=== PATIENT | female | born 1970 | race Caucasian/White ===

== ENCOUNTER 2020-09-19 06:46 | Outpatient (REF) | payer MEDICAID, SELFPAY | END 2020-09-19 06:47 | disposition home or self-care (01) | LOC: HO.LAB 06:46 | PROVIDERS: Visit Provider Internal Medicine | DX: Z20.828 Contact with and (suspected) exposure to other viral communicable diseases (principal) | CPT/HCPCS: C9803; U0003 ==

== ENCOUNTER 2021-05-28 10:19 | Outpatient (REF) | payer MEDICAID, SELFPAY ==
[2021-05-28 10:54] LABS: MANUAL DIFF FLAG NO
[2021-05-28 11:07] LABS: Basophils Absolute Auto 0.1 X10*3/uL (0.0-0.2); Basophils Percent Auto 0.9 % (0-2); Eosinophils Absolute Auto 0.3 X10*3/uL (0.0-0.4); Eosinophils Percent Auto 3.9 % (0-4); Hematocrit 45.3 % (37-47); Hemoglobin 15.1 g/dl (12.0-16.0); Imm Gran Abs Auto 0.02 X10*3/uL (0.00-0.03); Imm Gran Pct Auto 0.3 % (0.0-0.4); Lymphocytes Absolute Auto 1.9 X10*3/uL (1.2-4.9); Lymphocytes Percent Auto 24.1 % (20-40); Mean Corpuscular HGB Conc 33.3 g/dl (31.0-35.0); Mean Corpuscular Hemoglobin 30.8 pg (27.0-33.0); Mean Corpuscular Volume 92.4 fL (80-98); Mean Platelet Volume 10.1 fL (9.4-12.3); Monocytes Absolute Auto 0.5 X10*3/uL (0.1-1.2); Monocytes Percent Auto 5.7 % (2-11); Neutrophils Absolute Auto 5.1 X10*3/uL (2.0-8.3); Neutrophils Percent Auto 65.1 % (45-73); Platelet Count 266 X10*3/uL (160-400); Red Cell Distribution Width 12.6 % (11.0-16.0); White Blood Count 7.9 X10*3/uL (4.8-10.8)
[2021-05-28 11:11] LABS: Estimated Average Glucose 103 mg/dL; Hemoglobin A1c % 5.2 %
[2021-05-28 11:21] LABS: Alanine Aminotransferase 20 U/L (0-31); Albumin Level 4.4 g/dL (3.5-5.0); Alkaline Phosphatase 59 U/L (39-117); Anion Gap 13 (12-20); Aspartate Amino Transferase 19 U/L (5-31); Bilirubin Total 0.4 mg/dL (0.0-1.0); Blood Urea Nitrogen 14 mg/dL (9-16); Calcium 9.2 mg/dL (8.4-10.2); Carbon Dioxide 27 mmol/L (22-29); Chloride 104 mmol/L (96-108); Cholesterol 174 mg/dL; Estimated Glomerular Filt Rate > 60; Glucose Random 114 mg/dL (60-115); HDL Cholesterol 77 mg/dL; LDL Cholesterol Calculated 68 mg/dl; Potassium 4.5 mmol/L (3.3-5.1); Sodium 139 mmol/L (135-145); Total Protein 6.8 g/dL (6.5-8.0); Triglycerides 145 mg/dL
[2021-05-28 11:34] LABS: ~HepC Num1 0.09 S/CO (0.00-0.79); ~Hepatitis C Antibody Nonreactive (Nonreactive)
[2021-05-28 11:35] LABS: HBc Num1 0.07 S/CO (0.00-0.79); HIV AB/AG Nonreactive (Nonreactive); HIV Num 1 0.09 S/CO (0.00-0.99); Hepatitis B Core Antibody Nonreactive (Nonreactive); Hepatitis B Surface Antigen Negative (Negative)
[2021-05-28 11:36] LABS: HBS Num1 0.32 mIU/mL (0-7.99); ~Hepatitis B Surface Antibody NONREACTIVE (Nonreactive)
[2021-05-28 11:43] LABS: TSH reflex Free T4 1.16 uIU/mL (0.32-4.0); Vitamin D 25-OH Total 32.4 ng/mL (>30)
[2021-05-28 12:09] LABS: Creatinine Urine 166.44 mg/dL; Microalbum/Creatinine Ratio Ur 5.4 ug/mg cr
[2021-05-28 12:36] LABS: Syphilis Screen Nonreactive (Nonreactive)
== END 2021-05-28 10:20 | disposition home or self-care (01) ==
LOC: HO.LAB 10:19
PROVIDERS: PCP Nurse Practitioner Primary Care; Visit Provider Nurse Practitioner Primary Care
DX: I10 Essential (primary) hypertension (principal); F17.200 Nicotine dependence, unspecified, uncomplicated; Z11.3 Encounter for screening for infections with a predominantly sexual mode of transmission; Z13.1 Encounter for screening for diabetes mellitus; Z13.220 Encounter for screening for lipoid disorders
CPT/HCPCS: 36415; 80053; 80061; 82043; 82306; 83036; 84443; 85025; 86704; 86706; 86780; 86803; 87340; 87389

== ENCOUNTER 2023-03-17 08:37 | Emergency (ER) | payer MEDICAID, SELFPAY ==
--- NOTE | ~2023-03-17 | XR_ITS ---
EXAMINATION: XR CHEST CLINICAL INFORMATION: SOB and cough COMPARISON: None available. TECHNIQUE: 2 views of the chest were obtained. FINDINGS: No significant abnormality is noted involving the heart, lungs, mediastinum, bony thorax or soft tissues. XR/XR chest 2V IMPRESSION: Unremarkable chest examination.
[2023-03-17 08:57] VITALS: BP 142/97; PULSE 104; RESP 19; TEMP 37; O2SAT 93; BMI 29.9
--- NOTE | 2023-03-17 09:02 | ED.SOB ---
HPI - SOB/Dyspnea General Chief Complaint: Upper Respiratory Symptoms Stated Complaint: Trouble breathing/Cough Time Seen by Provider: 03/17/23 09:00 Source: patient Mode of arrival: ambulatory Limitations: no limitations History of Present Illness HPI Narrative: 52 yo female, active smoker with no medical problems presents to the ER for evaluation of painful cough, SOB, and nasal congestion for the last 3 days. She states her son was recently sick with an upper respiratory tract infection, was prescribed a decongestant by his doctor and got better within a few days. Patient reports she has been taking decongestants all weekend and has had no movements. She states she has a painful cough, pain in her chest when she coughs and takes a deep breath. She has nasal congestion but is unable to bring up any chest congestion or phlegm. She denies any fever or chills. No nausea, vomiting, or abdominal pain but she did have a couple episodes of loose stools which has gotten better. MD elicited complaint: shortness of breath and cough Onset (ago): day(s) (3) Context: recent illness Timing: progressively worsening Severity: moderate Exacerbating factors: coughing Relieving factors: nothing Associated symptoms: chest pain, pain with inspiration, cough and chest congestion Treatment prior to arrival: none Related Data Home oxygen amount: none Previous Rx's Medication Instructions Recorded benzonatate 100 mg capsule 100 mg PO TID PRN cough #20 caps 03/17/23 prednisone 20 mg tablet 40 mg PO DAILY #10 tabs 03/17/23 Allergies Allergy/AdvReac Type Severity Reaction Status Date / Time No Known Allergies Allergy Verified 03/17/23 08:57 Review of Systems Review of Systems: Yes all other systems are reviewed and are negative [facility] Social History Social History Alcohol intake: never Smoked in Last 30 Days: Yes Advance Directives: No Advance Directives Information Provided: No Physical Exam Vital Signs: Vital Signs: Last Vital Signs Temp 98.5 F 03/17/23 09:03 Pulse 106 H 03/17/23 09:03 Resp 18 03/17/23 09:03 BP 138/92 H 03/17/23 09:03 Pulse Ox 95 03/17/23 09:03 O2 Del Method Room Air 03/17/23 09:03 BMI result Body Mass Index 29.9 Appearance: Alert. Oriented X3. No acute distress. Head: normocephalic, atraumatic. Eyes: Pupils equal, round and reactive to light. ENT: Pharynx normal. No tonsillar swelling or exudate. Neck: Normal inspection. Neck supple. CVS: Tachycardic, regular rhythm, heart rate 107. Pulses normal. Respiratory: No respiratory distress. Breath sounds normal. Congested cough noted. Abdomen: Soft and nontender. +BS x4 Skin: Skin warm and dry. Normal skin color. Normal skin turgor. No rashes. Extremities: No lower extremity edema. No joint swelling. No calf tenderness. Neuro/psych: Oriented X 3. No motor deficit. No sensory deficit. CN II-XII intact. Normal speech and cognition. Medications Administered Discontinued Medications Generic Name Dose Route Start Last Admin Trade Name Dejuanq PRN Reason Stop Dose Admin Acetaminophen 975 mg 03/17/23 09:06 03/17/23 09:13 Acetaminophen 325 Mg Tablet PO 03/17/23 09:07 975 mg ONCE ONE Administration Guaifenesin 1,200 mg 03/17/23 09:06 03/17/23 09:13 Guaifenesin La 600 Mg Tab.Er.12h PO 03/17/23 09:07 1,200 mg ONCE ONE Administration Medical Decision Making Medical Decision Making [facility] Narrative: 52-year-old female, active smoker with no other medical problems presents to the ER for evaluation of chest congestion, shortness of breath, nasal congestion for the last 3 days. She did recently have exposure to her son who was also ill. She is slightly tachycardic on arrival, SpO2 95%, speaking in full complete sentences with no respiratory distress. Her lungs are clear on examination. The etiology of her shortness of breath and chest discomfort is due to a respiratory infection. Her chest x-ray is negative for pneumonia. Patient tested positive for COVID today. She is vaccinated. Low clinical suspicion for pulmonary embolism. She is saturating well on room air. We discussed diagnosis, treatment, supportive care and return precautions. She is stable for discharge home. Patient agrees with plan. Differential Diagnosis Differential Diagnoses: The differential diagnosis associated with the presentation includes Pneumonia, viral syndrome, COVID, flu, RSV, bronchitis, less likely ACS or PE Lab Data [facility] Lab Attestation statement: I reviewed the patient's lab results. Mild thrombocytopenia, otherwise unremarkable. 03/17/23 09:21 03/17/23 09:21 Labs: Lab Results 03/17/23 03/17/23 03/17/23 Range/Units 09:21 09:21 09:21 WBC 9.8 (4.8-10.8) X10*3/uL RBC 4.79 (4.20-5.50) X10*6/uL Hgb 14.1 (12.0-16.0) g/dl Hct 43.3 (37.0-47.0) % MCV 90.4 (80.0-98.0) fL MCH 29.4 (27.0-33.0) pg MCHC 32.6 (31.0-35.0) g/dl RDW 12.7 (11.0-16.0) % Plt Count 157 L (160-400) X10*3/uL MPV 9.8 (9.4-12.3) fL Immature Gran % (Auto) 0.2 (0.0-0.4) % Neut % (Auto) 80.0 H (45-73) % Lymph % (Auto) 12.0 L (20-40) % Mcdonald % (Auto) 6.7 (2-11) % Eos % (Auto) 0.9 (0-4) % Baso % (Auto) 0.2 (0-2) % Lymph # (Auto) 1.2 (1.2-4.9) X10*3/uL Mcdonald # (Auto) 0.7 (0.1-1.2) X10*3/uL Eos # (Auto) 0.1 (0.0-0.4) X10*3/uL Baso # (Auto) 0.0 (0.0-0.2) X10*3/uL Abs Immat Gran (auto) 0.02 (0.00-0.03) X10*3/uL Absolute Neuts (auto) 7.8 (2.0-8.3) x10*3/uL Absolute Nucleated RBC 0.000 (0.0-0.012) X10*3/uL Nucleated RBC % (auto) 0.0 (0.0-0.2) /100WBC Sodium 138 (135-145) mmol/L Potassium 4.0 (3.3-5.1) mmol/L Chloride 104 (96-108) mmol/L Carbon Dioxide 25 (22-29) mmol/L Anion Gap 13 (12-20) BUN 9 (9-16) mg/dL Creatinine 0.71 (0.5-1.4) mg/dL Estim Creat Clear Calc 124.1 Estimated GFR > 60 Random Glucose 106 (60-115) mg/dL Calcium 9.2 (8.4-10.2) mg/dL Magnesium 2.1 (1.6-2.6) mg/dL Total Bilirubin 0.4 (0.0-1.0) mg/dL Direct Bilirubin 0.1 (0.0-0.5) mg/dL AST 27 (5-31) U/L ALT 24 (0-31) U/L Alkaline Phosphatase 84 (39-117) U/L Total Protein 7.0 (6.5-8.0) g/dL Albumin 4.3 (3.5-5.0) g/dL COVID-19 (SHERIF) Positive A (Negative) COVID-19 Clin Com See Note Independent Interpretation I performed an independent interpretation of an: EKG and Plain X-Ray Interpretation: Chest x-ray is clear, no evidence of COVID pneumonia. EKG was sinus tachycardia, heart rate 104 beats per minute, isolated T-wave inversion in V1 only, no ST segment elevations or depressions. Normal TX interval and normal QTC. Radiology Impression Discussion of test interpretation with radiology: I have reviewed the radiologist's reading. Radiologist Impression: ?XR/XR chest 2V IMPRESSION: Unremarkable chest examination. External Record Review External record reviewed: Prior outpatient labs Tests considered The following testing was considered but not selected: CT angiogram of the chest considered, however low clinical suspicion for pulmonary embolism Prescription Management I considered prescription management with: Antibiotic Chronic Conditions Patient?s care impacted by: Other (Active smoker) Critical Care Time Critical Care Time Critical Care Time: No Discharge Plan Discharge Clinical Impression: COVID-19 Patient Disposition: Home, Self-Care Instructions: Covid-19 Viral Syndrome and Novel Coronavirus (ED) Hey/Ath Additional Instructions: You were found to be COVID-19 POSITIVE today. Your chest x-ray, labs, EKG and oxygen levels were normal. Rest. Drink plenty of fluids. Do not go out in public while your not feeling well. Take the prescribed steroid medication to help with inflammation in your lungs. Take the prescribed cough medication as needed for cough. Take over the counter cold/flu medications as needed for your symptoms. Take Tylenol and/or Motrin as needed for fevers and body aches. Follow up with your doctor this week. If you shortness of breath worsens , if you develop difficulty breathing or any other concerning symptom come back to the ER for further evaluation. Prescriptions: New prednisone 20 mg tablet 40 mg PO DAILY Qty: 10 0RF benzonatate 100 mg capsule 100 mg PO TID PRN (Reason: cough) Qty: 20 0RF
[2023-03-17 09:03] VITALS: BP 138/92; PULSE 106; RESP 18; TEMP 36.9; O2SAT 95; O2SAT 98
--- NOTE | 2023-03-17 09:06 | ECG_ITS ---
Test Reason : CHEST PAIN Blood Pressure : / mmHG Vent. Rate : 104 BPM Atrial Rate : 104 BPM P-R Int : 142 ms QRS Dur : 084 ms QT Int : 354 ms P-R-T Axes : 057 067 070 degrees QTc Int : 465 ms Sinus tachycardia Cannot rule out Inferior infarct , age undetermined Borderline ECG No significant changes seen Referred By: Elvira Lynn Electronically Signed By:PATRICA GARCIA MD
[2023-03-17] MEDS: guaiFENesin LA 600 MG TAB.ER.12H 1200 MG PO (09:13)
[2023-03-17] MEDS: Acetaminophen 325 MG TABLET 975 MG PO (09:13)
--- NOTE | 2023-03-17 09:17 | PC.NURSE ---
Pt reporting Cough/runny nose since friday. Denies fever, reporting diarrhea starting this morning. She is a/ox4. Pt reports she has a phelmy cough, but unable to cough it up.
[2023-03-17 09:25] LABS: MANUAL DIFF FLAG NO
[2023-03-17 09:27] LABS: Basophils Percent Auto 0.2 % (0-2); Eosinophils Absolute Auto 0.1 X10*3/uL (0.0-0.4); Eosinophils Percent Auto 0.9 % (0-4); Hematocrit 43.3 % (37.0-47.0); Hemoglobin 14.1 g/dl (12.0-16.0); Imm Gran Abs Auto 0.02 X10*3/uL (0.00-0.03); Imm Gran Pct Auto 0.2 % (0.0-0.4); Lymphocytes Absolute Auto 1.2 X10*3/uL (1.2-4.9); Mean Corpuscular HGB Conc 32.6 g/dl (31.0-35.0); Mean Corpuscular Hemoglobin 29.4 pg (27.0-33.0); Mean Corpuscular Volume 90.4 fL (80.0-98.0); Mean Platelet Volume 9.8 fL (9.4-12.3); Monocytes Absolute Auto 0.7 X10*3/uL (0.1-1.2); Monocytes Percent Auto 6.7 % (2-11); Neutrophils Absolute Auto 7.8 x10*3/uL (2.0-8.3); Platelet Count 157 X10*3/uL (160-400); Red Blood Count 4.79 X10*6/uL (4.20-5.50); Red Cell Distribution Width 12.7 % (11.0-16.0); White Blood Count 9.8 X10*3/uL (4.8-10.8)
[2023-03-17 09:44] LABS: Alanine Aminotransferase 24 U/L (0-31); Albumin Level 4.3 g/dL (3.5-5.0); Alkaline Phosphatase 84 U/L (39-117); Anion Gap 13 (12-20); Aspartate Amino Transferase 27 U/L (5-31); Bilirubin Direct 0.1 mg/dL (0.0-0.5); Bilirubin Total 0.4 mg/dL (0.0-1.0); Blood Urea Nitrogen 9 mg/dL (9-16); Calcium 9.2 mg/dL (8.4-10.2); Carbon Dioxide 25 mmol/L (22-29); Chloride 104 mmol/L (96-108); Creatinine Clr Calc Pharmacy 124.1; Estimated Glomerular Filt Rate > 60; Glucose Random 106 mg/dL (60-115); Magnesium 2.1 mg/dL (1.6-2.6); Sodium 138 mmol/L (135-145)
[2023-03-17 09:56] LABS: COVID-19 Test Positive (Negative); IDNOW Serial# BCCEAD1C
== END 2023-03-17 10:37 | disposition home or self-care (01) ==
PROVIDERS: Physician Assistant; Emergency Provider Emergency Medicine; PCP Nurse Practitioner Primary Care
DX: U07.1 COVID-19 (principal); R06.02 Shortness of breath; R05.9 Cough, unspecified; Z79.899 Other long term (current) drug therapy
CPT/HCPCS: 71046; 80048; 80076; 83735; 85025; 87635; 93005; 99283; 99285

== ENCOUNTER 2023-07-23 15:46 | Outpatient (REF) | payer MEDICAID, SELFPAY ==
[2023-07-23 16:50] LABS: Alanine Aminotransferase 21 U/L (0-31); Albumin Level 4.5 g/dL (3.5-5.0); Alkaline Phosphatase 84 U/L (39-117); Anion Gap 15 (12-20); Aspartate Amino Transferase 20 U/L (5-31); Bilirubin Total 0.6 mg/dL (0.0-1.0); Blood Urea Nitrogen 12 mg/dL (9-16); Calcium 9.4 mg/dL (8.4-10.2); Carbon Dioxide 26 mmol/L (22-29); Chloride 102 mmol/L (96-108); Cholesterol 203 mg/dL (<200); Estimated Glomerular Filt Rate > 60; Glucose Random 84 mg/dL (60-115); HDL Cholesterol 61 mg/dL (>40); LDL Cholesterol Calculated 124 mg/dL (<100); Potassium 4.2 mmol/L (3.3-5.1); Sodium 139 mmol/L (135-145); Total Protein 7.1 g/dL (6.5-8.0); Triglycerides 93 mg/dL (<150)
[2023-07-23 18:33] LABS: Creatinine Urine 175.87 mg/dL; Microalbum/Creatinine Ratio Ur 4.5 ug/mg cr (<30)
== END 2023-07-23 15:47 | disposition home or self-care (01) ==
LOC: HO.LAB 15:46
PROVIDERS: PCP Nurse Practitioner Primary Care; Visit Provider Nurse Practitioner Primary Care
DX: I10 Essential (primary) hypertension (principal)
CPT/HCPCS: 36415; 80053; 80061; 82043; 82570

== ENCOUNTER 2023-08-20 15:22 | Outpatient (REF) | payer MEDICAID, SELFPAY ==
--- NOTE | ~2023-08-20 | MM_ITS ---
EXAMINATION: MM SCREENING DIGITAL BREAST TOMOSYNTHESIS, BILATERAL CLINICAL INFORMATION: Screening. Asymptomatic. COMPARISON: Mammography: There are no prior mammograms for comparison. TECHNIQUE: Digital breast tomosynthesis is performed in both the craniocaudal and mediolateral oblique views along with computer-aided detection (CAD). Synthesized 2D images are generated from the tomosynthesis. FINDINGS: There are scattered areas of fibroglandular density (ACR BI-RADS breast composition Category b). There are no significant masses, abnormal calcifications, or other abnormalities. MM/MM tomosynthesis screening BI IMPRESSION: No mammographic evidence of malignancy. ASSESSMENT: BI-RADS BI-RADS 1 - Negative RECOMMENDATION: Routine annual mammography screening. 1 year F/U This examination should not preclude the clinical evaluation of a suspicious palpable abnormality. This patient's information was entered into a reminder system with a target due date for their next mammogram.
== END 2023-08-20 15:23 | disposition home or self-care (01) ==
LOC: HO.MAMMO 15:22
PROVIDERS: PCP Nurse Practitioner Primary Care; Visit Provider Nurse Practitioner Primary Care
DX: Z12.31 Encounter for screening mammogram for malignant neoplasm of breast (principal)
CPT/HCPCS: 77063; 77067

== ENCOUNTER → 2023-08-20 15:45 | Outpatient (BNV) | payer MEDICAID, SELFPAY | PROVIDERS: PCP Nurse Practitioner Primary Care; Visit Provider Radiology Diagnostic Radiology | DX: Z12.31 Encounter for screening mammogram for malignant neoplasm of breast (principal) | CPT/HCPCS: 77063; 77067 ==

== ENCOUNTER 2024-06-14 15:18 | Outpatient (REF) | payer MEDICAID, SELFPAY ==
--- NOTE | ~2024-06-14 | XR_ITS ---
EXAMINATION: XR CHEST CLINICAL INFORMATION: R Ronchi, cough, SOB x3 weks, empyema? COMPARISON: 03/17/2023 TECHNIQUE: 2 views of the chest were obtained. FINDINGS: There is no gross pneumothorax. Heart size is normal. No significant pleural effusion. No focal consolidation. Mild dextroscoliosis of the thoracic spine. XR/XR chest 2V IMPRESSION: No focal consolidation. Electronically signed by: Stacey Schmidt MD 10/01/2024 06:43 AM EST
== END 2024-06-14 15:19 | disposition home or self-care (01) ==
LOC: HO.HHCX 15:18
PROVIDERS: Visit Provider General Practice
DX: R05.1 Acute cough (principal)
CPT/HCPCS: 71046

== ENCOUNTER 2025-03-02 15:28 | Outpatient (REF) | payer MEDICAID, SELFPAY ==
--- OUTSIDE RECORDS SUMMARY | 2025-03-02 15:30 | XMS_ITS | Encounter Summary ---
Author Organization [employer] Address [address] [place] [address] Care Team Providers Care Therapy Technician Name Role Phone Chrissy Bishop Primary Care Provider [phone] Reason for Visit * Reason Onset Date Comments Nurse Triage 05/26/2024 Encounter Details Date Type Department Care Team (Late st Contact Info) Description 05/26/2024 Telephone [facility] [address] [place], [place] [phone] Chrissy Bishop ANP [address] [place], [place] [phone] Nurse Triage Social History Tobacco Use Types Packs/Day Years Used Date Smoking Tobacco: Every Day Cigarettes PHQ-2 Answer Date Recorded Patient Health Questionnaire-2 Score 0 06/25/2023 Housing Stability Answer Date Recorded What is your housing situation today? I have lexiisebastián nicolas 08/04/[address] you li ve. Do you have problems with any of the following? None of the above 08/04/2023 Food Insecurity Answer Date Recorded Within the past 12 months, y ou worried that your food would run out before you got money to buy more: Never True 08/04/2023 Within the past 12 months,th e food you bought just didn't last and you didn't have enough money to get more: Never True Transportation Answer Date Recorded In the past 12 months, has l ack of transportation kept you from medical appts, meetings, work or from getting things needed for daily living? No 08/04/2023 Utilities Answer Date Recorded In the past 12 months, has t he electric, gas, oil or water company threatened to shut off services in your home? No 08/04/2023 Depression Answer Date Recorded Patient Health Questionnaire-2 Score 0 06/25/2023 Comments Unknown Sex and Gender Information Value Date Recorded Sex Assigned at Female 08/19/2022 10:30 AM EDT Legal Sex Female 10:30 AM EDT Gender Identity Female 08/19/2022 10:30 AM EDT Sexual Orientation Straight 08/19/2022 10 :30 AM EDT documented as of this encounter Miscellaneous Notes * Telephone Encounter - Puja Thompson RN - 05/26/2024 11:37 AM EDT Triage call Pt reports cough week now. Pt is a tobacco smoker. Pt reports chest congestion, cough with production , color unkown and some wheezing present. Pt is neg for headaches, fever, body aches.Pt has hx of HTN but hasn't taken BP and does take med daily as prescribed. Pt is advised to drink adequate liquids 6-8 glasses daily. Pt is offered [facility] no available office apts today. Pt agrees with disposition and home care advised. Insurance is verified as active. Protocol Used: Cough (Adult) Protocol-Based Disposition: See in Office or Video Visit Today or Tomorrow Video visit not offered Positive Triage Questions: * Continuous (nonstop) coughing interferes with work or school and no improvement using cough treatment per Care Advice * Patient wants to be seen * All higher-acuity triage questions were negative Care Advice Discussed: * Reassurance and Education - Cough * Cough Medicines * Prevent Dehydration * Reasons To Call Back - Difficulty breathing - Cough lasts more than 3 weeks - Fever lasts more than 3 days - You become worse * Telephone Encounter - Bhargav Breaux - 05/26/2024 11:10 AM EDT Symptoms: Chest Congestion, Cough Outcome: Schedule an urgent appointment (within 1 hour) or talk to a nurse or provider soon Reason: Wheezing (high-pitched whistling sound) The caller accepted this outcome documented in this encounter Plan of Treatment Not on file documented as of this encounter Visit Diagnoses Not on filedocumented in this encounter Care Teams Therapy Technician Relationship Specialty Start Date End Date Chrissy Bishop ANP [address] [place] [address] PCP - General Family Medicine 05/16/21 documented as of this encounter
--- OUTSIDE RECORDS SUMMARY | 2025-03-02 15:30 | XMS_ITS | Clinical Summary ---
Author Organization [employer] Address [address] [place] [address] Care Team Providers Care Best Second Jobs Name Role Phone Marisela Kang Primary Care Provider [phone] Allergies No known active allergies Medications * This document contains information received from the source organization and may not represent a complete record from that organization. Blood Pressure kitIndications:Es sential hypertension 1 kit in the morning. 1 kit 3 Active albuterol 108 (90 Base) MCG/ACT inhaler Inhale 2 puffs every 6 (six) hours if needed for wheezing. 18 g 11 4 06/14/20 25 Active varenicline (Chantix) 1 MG tabletIndications :Smoking greater than 30 pack years Take 1 tablet (1 mg) by mouth 2 times daily. Take with full glass of water. Start after initial 7d rx. 60 tablet 2 4 Active nicotine (Nicoderm CQ) 21 MG/24HR patchIndications: Smoking greater than [address] 1 patch on the skin 1 (one) time each day at the same time. 28 patch 4 Active nicotine (Nicoderm CQ) 14 MG/24HR patchIndications: Smoking greater than [address] 1 patch on the skin 1 (one) time each day at the same time. 42 patch 4 Active nicotine (Nicoderm, Step 3) 7 MG/24HR patchIndications: Smoking greater than [address] 1 patch on the skin 1 (one) time each day at the same time. 14 patch 1 4 Active nicotine polacrilex (Nicorette) 4 MG gumIndications:Sm oking greater than 30 pack years Chew 1 each (4 mg) if needed for smoking cessation. [place]ela and park. Use up to 1 every 1-2 hours 100 each 11 4 Active Umeclidinium [place] 62.5 MCG/ACT aerosol powderIndications :Chronic obstructive pulmonary disease, unspecified COPD type (CMS/HCC) Inhale 1 Act (62.5 mcg) Once daily. 30 each 3 4 Active varenicline (Chantix) 0.5 MG tabletIndications :Smoker,Smoking greater than 30 pack years Take 0.5 mg PO once daily on Days 1 through 3, then 0.5 mg PO twice daily on Days 4 through 7, then start 1mg twice daily prescription ; take with full glass of water 11 tablet 5 Active olmesartan (BENIcar) 20 MG tabletIndications :Essential hypertension Take 1 tablet (20 mg) by mouth Once per day. 90 tablet 1 5 12/23/19 26 Active Active Problems Problem Noted Date Diagnosed Date Acute URI 05/26/2024 Stage 1 mild COPD by GOLD classification 024 Overview (12/22/2024): Images from the original note were not included. Doing well at present without inhalers. Has Incruse Ellipta which she will start should her symptoms worsen again. Has albuterol for as needed use. Assessment & Plan (06/16/2024 6:39 AM EDT): Meets criteria for COPD exacerbation Start prednisone 40mg daily x 5 days Start Augmentin BID x 7 days Return precautions discussed Assessment & Plan (05/26/2024 3:09 PM EDT): Pt with likely COPD given tobacco history. Not ready to cut down at this time. -rx amoxicillin x 10 days -no indication for steroids at this time -seek medical attention if symptoms worsen or do not improve -she agrees with the plan History of cervical cancer 06/25/2023 Essential hypertension 05/16/2021 Assessment & Plan (06/16/2024 6:38 AM EDT): Double her Losartan to 100mg Continue to monitor BP daily at home ER precautions discussed, asymptomatic currently Followup with PCP as scheduled Smoker 05/16/2021 Assessment & Plan (06/16/2024 6:38 AM EDT): Encouraged continued cutting down on smoking and eventual goal of quitting Encounters Date Type Department Care Team Description 12/31/2024 Population Health Risk Score [facility] () Department [address] [phone] Provider, Population Health Generic 12/23/2024 Telephone [facility] [address] [place] [address] Marisela Kang ANP Appointment Request 12/22/2024 4:00 PM EST Telemedicine [facility] MED[facility]INE [address] [place] [address] Marisela Kang ANP Smoker (Primary Dx); Smoking greater than 30 pack years; Screening for cervical cancer; Essential hypertension; Tobacco abuse counseling; Stage 1 mild COPD by GOLD classification (CMS/[facility]); Screening mammogram for breast cancer 12/22/2024 Travel from Last 3 Months Immunizations Immunization Administration Dates Next Due Hep B, adult 12/30/2023,07/30/2023,06/25/2023 Pfizer Covid-19 Vaccine 12+ 03/02/2021, 1 TD (adult), 2 Lf tetanus tox oid, preservative free, adsorbed 07/17/2004 Td (adult) 07/17/2004 Tdap 05/16/2021 Social History Tobacco Use Types Packs/Day Years Used Date Smoking Tobacco: Every Day Cigarettes Tobacco Cessation:Ready to Q uit: Not Asked; Counseling Given: Not Answered Alcohol Use Standard Drinks/Week Comments Yes 0 (1 standard drink = 0.6 oz pure alcohol) pt states she drinks about 1 bottle of wine every 2 days Alcohol Answer Date Recorded How often do you have a drink containing alcohol ? 4 08/25/2024 How many drinks containing a lcohol do you have on a typical day when you are drinking? 0 08/25/2024 How often do you have six or more drinks on one occasion? 4 08/25/2024 Depression Answer Date Recorded Patient Health Questionnaire-9 Score 1 08/25/2024 Patient Health Questionnaire-9 Score 1 08/25/2024 Last PHQ-9: Questionnaire Data Not on file 1 10/25/2023 Housing Stability Answer Date Recorded What is your housing situation today? I have lexii nicolas 08/25/[address] you li ve. Do you have problems with any of the following? None of the above 08/25/2024 Food Insecurity Answer Date Recorded Within the past 12 months, y ou worried that your food would run out before you got money to buy more: Never True 2023 Within the past 12 months,th e food you bought just didn't last and you didn't have enough money to get more: Sometimes True 08/25/2024 Transportation Answer Date Recorded In the past 12 months, has l ack of transportation kept you from medical appts, meetings, work or from getting things needed for daily living? No 08/25/2024 Utilities Answer Date Recorded In the past 12 months, has t he electric, gas, oil or water company threatened to shut off services in your home? No 08/25/2024 Depression Answer Date Recorded Patient Health Questionnaire-2 Score 0 08/25/2024 Internet Access Answer Date Recorded Internet Access Q1 Yes 08/25/2024 Internet Access Q2 Not on file 08/25/2024 Comments Unknown Sex and Gender Information Value Date Recorded Sex Assigned at Female 08/19/2022 10:30 AM EDT Legal Sex Female 10:30 AM EDT Gender Identity Female 08/19/2022 10:30 AM EDT Sexual Orientation Straight 08/19/2022 10 :30 AM EDT Last Filed Vital Signs Vital Sign Reading Time Taken Comments Blood Pressure 135/83 08/25/2024 3:14 PM EST Pulse 88 08/25/2024 3:14 PM EST Temperature 36.5 ??C (97.7 ??F) 08/25/2024 3:14 PM ES T Respiratory Rate 18 08/25/2024 3:14 PM EST Oxygen Saturation 96% 08/25/2024 3:14 PM EST Inhaled Oxygen Concentration - - Weight 92.9 kg (204 lb 12.8 oz) 08/25/2024 3:14 PM EST Height 177.8 cm (5' 10 ) 08/25/2024 3:14 PM EST Body Mass Index 29.39 08/25/2024 3:14 PM EST Plan of Treatment Health Maintenance Due Date Last Done Comments CT Colonography 1971 Colonoscopy 1971 FIT 1971 FOBT 1971 Sigmoidoscopy 1971 Pneumococcal Vaccine: 50+ Years (1 of 2 - PCV) 1990 Pap Smear 1992 Cervical Cancer Screening 2001 HPV/Cotest 2001 Zoster Vaccines (1 of 2) 2021 COVID-19 Vaccine (3 - 2023-2 5 season) 2024 03/02/2021, 02/09/2021 Influenza Vaccine (#1) 2024 Mammogram 08/20/2024 08/20/2023 Alcohol/Substance Use Screening 08/25/2025 08/25/2024 Depression Screening 08/25/2025 08/25/2024, 08/25/2024 SDOH Screening 08/25/2025 08/25/2024 Tobacco Screening 12/22/2025 12/22/2024, 06/25/2023 Colorectal Cancer Screening 08/25/2027 FIT DNA/Cologuard 08/25/2027 08/25/2024 Lipid Panel 07/23/2028 07/23/2023 DTaP/Tdap/Td Vaccines (2 - T d or Tdap) 05/16/2031 05/16/2021, 07/17/2004, 07/17/2004 RSV Patients and Patients Aged 60 years or older (1 - 1-dose 75+ series) 2046 HIV Screening Completed 05/28/2021 Hepatitis C Screening Completed 05/28/2021 Hepatitis B Vaccines Completed 12/30/2023, 07/30/2023, 06/25/2023 HIB Vaccines Aged Out No longer eligi ble based on patient's age to complete this topic HPV Vaccines Aged Out No longer eligi ble based on patient's age to complete this topic Hepatitis A Vaccines Aged Out No long er eligible based on patient's age to complete this topic IPV Vaccines Aged Out No longer eligi ble based on patient's age to complete this topic Meningococcal Vaccine Aged Out No teofilo alli eligible based on patient's age to complete this topic RSV under 20 months Aged Out No longe r eligible based on patient's age to complete this topic Rotavirus Vaccines Aged Out No longer eligible based on patient's age to complete this topic Procedures Procedure Name Priority Date/Time Associated Diagnosis Comments LAB COLOGUARD?? COLON CANCER SCREEN Routine 08/25/2024 9:00 AM EST Screening for malignant neoplasm of colon BI MAMMOGRAM SCREENING TOMOSYNTHESIS BILATERAL Routine 08/20/2023 3:36 PM EDT LIPID PANEL, STANDARD Routine 07/23/2023 3:55 PM EDT Essential hypertension ZZZ HISTORICAL HEMOGLOBIN A1C Routine 05/28/2021 10:35 AM EDT from Last 3 Months or Most Recently Relevant to Health Maintenance Results * Cologuard?? colon cancer screening (08/25/2024 9:00 AM EST) Cologuard Result Negative Negative 09/02/20 24 6:58 PM EST [facility] (CLIA #:[id number]) Comment: NEGATIVE TEST RESULT. A negative Cologuard result indicates a low likelihood that a colorectal cancer (CRC) or advanced adenoma (adenomatous polyps with more advanced pre-malignant features) ??is present. The chance that a person with a negative Cologuard test has a colorectal cancer is less than 1 in 1500 (negative predictive value >99.9%) or has an ??advanced adenoma is less than ??5.3% (negative predictive value 94.7%). These data are based on a prospective cross-sectional study of 10,000 individuals at average risk for colorectal cancer who were screened with both Cologuard and colonoscopy. (Helen Moore al, N Engl J Med 2014;370(14):1286- 1297) The normal value (reference range) for this assay is negative. COLOGUARD RE-SCREENING RECOMMENDATION: Periodic colorectal cancer screening is an important part of preventive healthcare for asymptomatic individuals at average risk for colorectal cancer. ??Following a negative Cologuard result, the [place] [employer] Society and U.S. Multi-Society Task Force screening guidelines recommend a Cologuard re-screening interval of 3 years. References: [place] [employer] Guideline for Colorectal Cancer Screening: https://www.cancer.org/cancer/jcksg-utpxaw-yghucj/kejpvsfjq-clchtpytg-kpbkibh/ac s-rec ommendations.html.; Lefty DK, Carroll CR, Delphine MurphyK, Colorectal Cancer Screening: Recommendations for Physicians and Patients from the U.S. Multi-Society Task Force on Colorectal Cancer Screening , Am J Gastroenterology 2017; 112:5831-8791. TEST DESCRIPTION: Composite algorithmic analysis of stool DNA-biomarkers with hemoglobin immunoassay. ?? Quantitative values of individual biomarkers are not reportable and are not associated with individual biomarker result reference ranges. Cologuard is intended for colorectal cancer screening of adults of either sex, 45 years or older, who are at average-risk for colorectal cancer (CRC). Cologuard has been approved for use by the U.S. FDA. The performance of Cologuard was established in a cross sectional study of average-risk adults aged 50-84. Cologuard performance in patients ages 45 to 49 years was estimated by sub-group analysis of near-age groups. Colonoscopies performed for a positive result may find as the most clinically significant lesion: colorectal cancer [4.0%], advanced adenoma (including sessile serrated polyps greater than or equal to 1cm diameter) [20%] or non- advanced adenoma [31%]; or no colorectal neoplasia [45%]. These estimates are derived from a prospective cross-sectional screening study of 10,000 individuals at average risk for colorectal cancer who were screened with both Cologuard and colonoscopy. (Helen Moore al, N Engl J Med 2014;370(14):4144-3931.) Cologuard may produce a false negative or false positive result (no colorectal cancer or precancerous polyp present at colonoscopy follow up). A negative Cologuard test result does not guarantee the absence of CRC or advanced adenoma (pre-cancer). The current Cologuard screening interval is every 3 years. ([place] [employer] Society and U.S. Multi-Society Task Force). Cologuard performance data in a 10,000 patient pivotal study using colonoscopy as the reference method can be accessed at the following location: www.MolecularMD.Hatchtech/results. Additional description of the Cologuard test process, warnings and precautions can be found at www.QRcao.Hatchtech. Stool specimen (specimen) 08/25/2024 9:00 AM EST 08/26/2024 12:20 PM EST us Marisela Kang ANP LAB MOLECULAR DIAGNOSTICS ORDERA BLES Final Result [facility] (CLIA #:[id number]) [address] [place] [address], * BI Mammogram Screening Tomosynthesis Bilateral (08/20/2023 3:36 PM EDT) Anatomical Region Laterality Modality Breast Bilateral Mammography 08/20/2023 3:36 PM EDT Narrative 09/10/2023 4:27 AM EST ? [facility] ? [address] ?[place] [address] ? Mammography Report ? Signed ? Patient: Olivia Pgaan ?MR#: [id number] ?? 27 ? : 1970 ?Acct:[id number] ? Age/Sex: 53 / F ?ADM Date: 11// ? Loc: HO.MAMMO ? Attending Dr: Marisela Kang DIRECTOR CLINICAL PHARMACOLOGY ? Ordering Physician: PEARL,MARISELA ORTEGA ?Results: 1Negative ? Date of Service: 08/20/23 ?Follow Up: 1 Year From Orig ?? inal Mammogram ? Procedure(s): MM tomosynthesis screening BI ?? Accession Number(s): [id number] ? cc: PEARL,MARISELA ORTEGA ? EXAMINATION: ?? MM SCREENING DIGITAL BREAST TOMOSYNTHESIS, BILATERAL ? CLINICAL INFORMATION: ? Screening. Asymptomatic. ? COMPARISON: ?? Mammography: There are no prior mammograms for comparison. ? TECHNIQUE: ?? Digital breast tomosynthesis is performed in both the craniocaudal and ?? mediolateral oblique views along with computer-aided detection (CAD). ?? Synthesized 2D images are generated from the tomosynthesis. ? FINDINGS: ?? There are scattered areas of fibroglandular density (ACR BI-RADS breast ?? composition Category b). ? There are no significant masses, abnormal calcifications, or other ?? abnormalities. ? MM/MM tomosynthesis screening BI ?? IMPRESSION: ?? No mammographic evidence of malignancy. ? ASSESSMENT: ? BI-RADS BI-RADS 1 - Negative ? RECOMMENDATION: ?? Routine annual mammography screening. ? 1 year F/U ? This examination should not preclude the clinical evaluation of a ?? suspicious palpable abnormality. ? This patient's information was entered into a reminder system with a ?? target due date for their next mammogram. ? Dictated By: ?Payal Patel MD ? Signed By: ?<Electronically signed by Payal Patel MD in OV> ? 09/10/23 0423 ? DD/ ? TD/TT: ? Folder Machine Operator: ? Procedure Note Brnet Lion - 09/10/2023 [facility] [address] [place] [address] Dr. [place], [place] [address] Mammography Report Signed Patient: Olivia Pagan CMR#: [id number] [birth year] : 1970Acct:[id number] Age/Sex: 53 / FADM Date: 08/20/23 Loc: [facility] Attending Dr: Marisela Kang DIRECTOR CLINICAL PHARMACOLOGY Ordering Physician: MARISELA KANGults: 1Negative Date of Service: 08/20/23Follow Up: 1 Year From Orig inal Mammogram Procedure(s): MM tomosynthesis screening BI Accession Number(s): [id number] cc: MARISELA KANG NP EXAMINATION: MM SCREENING DIGITAL BREAST TOMOSYNTHESIS, BILATERAL CLINICAL INFORMATION: Screening. Asymptomatic. COMPARISON: Mammography: There are no prior mammograms for comparison. TECHNIQUE: Digital breast tomosynthesis is performed in both the craniocaudal and mediolateral oblique views along with computer-aided detection (CAD). Synthesized 2D images are generated from the tomosynthesis. FINDINGS: There are scattered areas of fibroglandular density (ACR BI-RADS breast composition Category b). There are no significant masses, abnormal calcifications, or other abnormalities. MM/MM tomosynthesis screening BI IMPRESSION: No mammographic evidence of malignancy. ASSESSMENT: BI-RADS BI-RADS 1 - Negative RECOMMENDATION: Routine annual mammography screening. 1 year F/U This examination should not preclude the clinical evaluation of a suspicious palpable abnormality. This patient's information was entered into a reminder system with a target due date for their next mammogram. Dictated By: Payal Patel MD Signed By: <Electronically signed by Payal Patel MD in OV> 09/10/23 0423 DD/ 1536 TD/TT: Folder Machine Operator: Marisela ADAME G BI PROCEDURES Edited Result - Final * (ABNORMAL) Lipid Panel, Standard (07/23/2023 3:55 PM EDT) Triglycerides 93 <150 mg/dL [facility] Comment:Desirable Triglyceri de: less than 150 mg/dLBorderline High Triglyceride 150-199 mg/dLHigh Triglyceride: 200-499 mg/dLVery High Triglyceride: greater than or equal to 5OO mg/dL Cholesterol 203(H) <200 mg/dL [facility] Comment:Desirable Cholestero l: less than 200 mg/dLBorderline High Cholesterol: 200-239 mg/dLHigh Cholesterol: greater than 239 mg/dL LDL Cholesterol Calculated 124(H) <100 mg/dL [facility] Comment:Desirable LDL: less than 100 mg/dLNear Optimal/Above Optimal LDL: 110- 129 mg/dLBorderline High LDL: 130-159 mg/dLHigh LDL: 160-189 mg/dLVery High LDL: greater than or equal to 190 mg/dL HDL Cholesterol 61 >40 mg/dL [facility] Comment:Desirable HDL: great er than 40 mg/dL Note: This HDL assay may give artificially low results in patients with liver disease. Blood Venous blood specimen / Unknown 07/23/2023 3:55 PM EDT 07/23/2023 3:57 PM EDT us [facility] LAB BLOOD ORDERABLES Final Resul t [facility] [address] [place], [place] [phone] [phone] * HEMOGLOBIN A1C (05/28/2021 10:35 AM EDT) Estimated Average Glucose 103 mg/dL [facility] Comment: eAG = Estimated average glucose which is %A1C expressed as average glucose, using the formula of the L5V-Gywlldx Average Glucose study (ADAG), Diabetes Care, Vol.31,#8, May. 2007 Hemoglobin A1c % 5.2 % U [facility] Comment: ?Hemoglobin A1C Reference Range ?Adults: ??4.8 - 6.0 % ?Non diabetic: ??< 6.0 % ?Goal: ??< 7.0 % Additional Action Suggested: ??> 8.0 % ?? Note: ??Hemoglobin A1c results are invalid for patients ?with abnormal amounts of HbF. ??Blood transfusions ?may impact the HbA1c concentration in the patient ?sample. Syphilis Screen Nonreactive Nonreactive [facility] Hepatitis B Surface Antibody NONREACTIVE Nonreactive [facility] Comment:Nonreactive: < 8.00 mIU/mL Hepatitis B Core Antibody Nonreactive Nonreactive [facility] HIV AB/AG Nonreactive Nonreactive [facility] Comment: HIV-1 p24 Ag and/or HIV-1/HIV-2 Ab not detected. ?? A test result that is nonreactive does not exclude the possibility of exposure to or infection with HIV-1 and/or HIV-2. Nonreactive results in this assay for individuals with prior exposure to HIV-1 and/or HIV-2 may be due to antigen and antibody levels that are below the limit of detection of this assay. ?? The [employer] Tubing Machine Tender HIV Ag/Ab Combo assay result and supplemental assay results should be interpreted in conjunction with the patient's clinical presentation, history and other laboratory results. ??If the results are inconsistent with clinical evidence, additional testing is suggested to confirm the result. Hepatitis B Surface Antigen Negative Negative [facility] Alanine Aminotransferase 20 0 - 31 U/L [facility] Albumin Level 4.4 3.5 - 5.0 g/dL [facility] Alkaline Phosphatase 59 39 - 117 U/L [facility] Anion Gap 13 12 - 20 [facility] Aspartate Amino Transferase 19 5 - 31 U/L [facility] Bilirubin Total 0.4 0.0 - 1.0 mg/dL [facility] Blood Urea Nitrogen 14 9 - 16 mg/dL [facility] Calcium 9.2 8.4 - 10.2 mg/dL [facility] Carbon Dioxide 27 22 - 29 mmol/L [facility] Chloride 104 96 - 108 mmol/L [facility] Creatinine, Serum 0.83 0.5 - 1.4 mg/dL [facility] Estimated Glomerular Filt Rate >60 [facility] Comment: NOTE: ??For -[place]aur[place] individuals, multiply the result ?by 1.210. ?? Chronic Kidney Disease: ??Estimated GFR < 60 mL/min/1.73m2 Severe Kidney Disease: ??Estimated GFR < 15 mL/min/1.73m2 Glucose Random 114 60 - 115 mg/dL [facility] Potassium 4.5 3.3 - 5.1 mmol/L [facility] Sodium 139 135 - 145 mmol/L [facility] Total Protein 6.8 6.5 - 8.0 g/dL [facility] Cholesterol 174 mg/dL [facility] Comment: Desirable Cholesterol: ?less than 200 mg/dL Borderline High Cholesterol: ??200-239 mg/dL High Cholesterol: ? greater than 239 mg/dL HDL Cholesterol 77 mg/dL [facility] Comment: Desirable HDL: ??greater than 40 mg/dL ?? Note: This HDL assay may give artificially ? low results in patients with liver disease. LDL Cholesterol Calculated 68 mg/dl [facility] Comment: Desirable LDL: ? less than 100 mg/dL Near Optimal/Above Optimal LDL: ??110-129 mg/dL Borderline High LDL: ? 130-159 mg/dL High LDL: ?160-189 mg/dL Very High LDL: ? greater than or equal to ?190 mg/dL Triglycerides 145 mg/dL [facility] Comment: Desirable Triglyceride: ? less than 150 mg/dL Borderline High Triglyceride ??150-199 mg/dL High Triglyceride: ?200-499 mg/dL Very High Triglyceride: ? greater than or equal to ? 5OO mg/dL Vitamin D 25-OH Total 32.4 >30 ng/mL [facility] Comment: Health Based Reference Values* ?? < 20 ??ng/mL ??Deficient 20-30 ng/mL ??Insufficient > 30 ??ng/mL ??Sufficient ?? *John PRECIADO. N Engl J Med. 2007;357:266-280 ?? Care must be taken in interpreting Vitamin D results from different laboratories and methodologies. ??Published data demonstrated that results from patients undergoing hemodialysis may show a negative bias when tested with various automated 25-OH vitamin D assays when compared to LC-MS/MS. ?? When testing samples from patients whose predominant form of Vitamin D is Vitamin D2, such as patients receiving Vitamin D2 supplementation, results that are subtherapeutic should be confirmed with another method such as LC-MS/MS. TSH reflex Free T4 1.16 0.32 - 4.0 uIU/mL [facility] Alanine Aminotransferase 20 0 - 31 U/L [facility] Albumin Level 4.4 3.5 - 5.0 g/dL [facility] Alkaline Phosphatase 59 39 - 117 U/L [facility] Anion Gap 13 12 - 20 [facility] Aspartate Amino Transferase 19 5 - 31 U/L [facility] Bilirubin Total 0.4 0.0 - 1.0 mg/dL [facility] Blood Urea Nitrogen 14 9 - 16 mg/dL [facility] Calcium 9.2 8.4 - 10.2 mg/dL [facility] Carbon Dioxide 27 22 - 29 mmol/L [facility] Chloride 104 96 - 108 mmol/L [facility] Creatinine, Serum 0.83 0.5 - 1.4 mg/dL [facility] Estimated Glomerular Filt Rate >60 [facility] Comment: NOTE: ??For -Nauruan individuals, multiply the result ?by 210. ?? Chronic Kidney Disease: ??Estimated GFR < 60 mL/min/1.73m2 Severe Kidney Disease: ??Estimated GFR < 15 mL/min/1.73m2 Glucose Random 114 60 - 115 mg/dL [facility] Potassium 4.5 3.3 - 5.1 mmol/L [facility] Sodium 139 135 - 145 mmol/L [facility] Total Protein 6.8 6.5 - 8.0 g/dL [facility] Cholesterol 174 mg/dL [facility] Comment: Desirable Cholesterol: ?less than 200 mg/dL Borderline High Cholesterol: ??200-239 mg/dL High Cholesterol: ? greater than 239 mg/dL HDL Cholesterol 77 mg/dL [facility] Comment: Desirable HDL: ??greater than 40 mg/dL ?? Note: This HDL assay may give artificially ? low results in patients with liver disease. LDL Cholesterol Calculated 68 mg/dl [facility] Comment: Desirable LDL: ? less than 100 mg/dL Near Optimal/Above Optimal LDL: ??110-129 mg/dL Borderline High LDL: ? 130-159 mg/dL High LDL: ?160-189 mg/dL Very High LDL: ? greater than or equal to ?190 mg/dL Triglycerides 145 mg/dL [facility] Comment: Desirable Triglyceride: ? less than 150 mg/dL Borderline High Triglyceride ??150-199 mg/dL High Triglyceride: ?200-499 mg/dL Very High Triglyceride: ? greater than or equal to ? 5OO mg/dL Creatinine Urine 166.44 mg/dL [facility] Microalbum/Creatin ine Ratio Ur 5.4 ug/mg cr [facility] Comment: ?Albumin/Creatinine Ratio Reference Ranges: ? Normal: < 30 ug/mg creatinine ? Microalbuminuria: ??30 - 300 ug/mg creatinine Clinical Albuminuria: ??> 300 ug/mg creatinine Microalbumin Urine 9.0 mg/L [facility] Hepatitis C Antibody Nonreactive Nonreactive [facility] Comment: Antibodies to HCV not detected; does not exclude early acute HCV infection. Basophils Absolute Auto 0.1 0.0 - 0.2 X10*3/uL [facility] Basophils Percent Auto 0.9 0 - 2 % [facility] Eosinophils Absolute Auto 0.3 0.0 - 0.4 X10*3/uL [facility] Eosinophils Percent Auto 3.9 0 - 4 % [facility] Hematocrit 45.3 37 - 47 % [facility] Hemoglobin 15.1 12.0 - 16.0 g/dl [facility] Imm Gran Abs Auto 0.02 0.00 - 0.03 X10*3/uL [facility] Imm Gran Pct Auto 0.3 0.0 - 0.4 % [facility] Lymphocytes Absolute Auto 1.9 1.2 - 4.9 X10*3/uL [facility] Lymphocytes Percent Auto 24.1 20 - 40 % [facility] Mean Corpuscular Hemoglobin 30.8 27.0 - 33.0 pg [facility] Mean Corpuscular HGB Conc 33.3 31.0 - 35.0 g/dl [facility] Mean Corpuscular Volume 92.4 80 - 98 fL [facility] Mean Platelet Volume 10.1 9.4 - 12.3 fL [facility] Monocytes Absolute Auto 0.5 0.1 - 1.2 X10*3/uL [facility] Monocytes Percent Auto 5.7 2 - 11 % [facility] Neutrophils Absolute Auto 5.1 2.0 - 8.3 X10*3/uL [facility] Neutrophils Percent Auto 65.1 45 - 73 % [facility] NRBC Abs Auto 0.000 0.0 - 0.012 X10*3/uL [facility] NRBC Pct Auto 0.0 0.0 - 0.2 /100WBC [facility] Platelet Count 266 160 - 400 X10*3/uL [facility] Red Blood Count 4.90 4.20 - 5.50 X10*6/uL [facility] Red Cell Distribution Width 12.6 11.0 - 16.0 % [facility] White Blood Count 7.9 4.8 - 10.8 X10*3/uL [facility] 05/28/2021 10:3 5 AM EDT us Marisela Kang ANP HISTORICAL/NON ORDERABLE LABS Fi nal Result [facility] [address] from Last 3 Months or Most Recently Relevant to Health Maintenance Insurance [employer] Best [employer] Jobs Relationship Specialty Start Date End Date Marisela Kang ANP [address] [place] [id number] PCP - General Family Medicine 05/16/21
== END 2025-03-02 15:29 | disposition home or self-care (01) ==
LOC: HO.MAMMO 15:28
PROVIDERS: PCP Nurse Practitioner Primary Care; Visit Provider Nurse Practitioner Primary Care
DX: Z12.31 Encounter for screening mammogram for malignant neoplasm of breast (principal)
CPT/HCPCS: 77063; 77067

== ENCOUNTER → 2025-03-02 15:45 | Outpatient (BNV) | payer MEDICAID, SELFPAY | PROVIDERS: PCP Nurse Practitioner Primary Care; Visit Provider Internal Medicine | DX: Z12.31 Encounter for screening mammogram for malignant neoplasm of breast (principal) | CPT/HCPCS: 77063; 77067 ==